=== PATIENT | male | born 1980 | race Caucasian/White ===

== ENCOUNTER 2017-07-11 11:13 | Emergency (ER) | payer SELFPAY ==
[~2017-07-11] VITALS: Ht 165.1 cm; Wt 68.5 kg
[2017-07-11] MEDS: KETOROLAC 60MG/2ML VIAL IM ONE (12:23)
[2017-07-11] MEDS: BACITRACIN ZINC OINT UDPKT TOP ONE (12:25)
[2017-07-11 12:49] VITALS: BP 136/89
== END 2017-07-11 12:51 | disposition home or self-care (01) ==
LOC: ER 11:13
DX: B35.3 Tinea pedis (principal)
CPT/HCPCS: 96372; 99283; J1885